=== PATIENT | male | born 1950 | race Caucasian/White ===

== ENCOUNTER 2023-07-15 21:32 | Inpatient (IN) | payer MEDICARE ==
[2023-07-15] MEDS ORDERED: NALOXONE 0.4 MG/ML 1 ML VIAL IV PRN (21:57)
[2023-07-15] MEDS ORDERED: KETOROLAC 15 MG/ML 1 ML VIAL IVP PRN (21:57)
[2023-07-15] MEDS ORDERED: METOCLOPRAMIDE 5 MG/ML 2 ML VIAL IVP STA (22:00)
--- NOTE | 2023-07-15 22:01 | ED ---
Abdominal Pain HPI - General Stated Complaint: Ruptured Appendix Time Seen by Provider: 07/15/23 21:34 Source: patient, EMS, RN notes reviewed - History of Present Illness Initial Comments: Patient is a 73-year-old male presenting to the ER via EMS transferred from [facility] with a chief complaint of a ruptured appendix. Patient states on Sunday he started feeling abdominal pain. He was seen in urgent care and diagnosed with constipation. Patient states pain persisted. He states late last week he had a temperature of 100.3. Upon evaluation in the ER today at [facility] CT scan showed a ruptured appendix. Patient was transported here for further care and surgery. Patient received IV toradol, zofran, and zosyn prior to transport. Patient is not complaining of any pain at this time. - Related Data Home Medications Medication Instructions Recorded Confirmed Candesartan [Atacand] 16 mg PO DAILY 07/15/23 07/15/23 Fluticasone Nasal [place] [Flonase 1 spray EA NOSTRIL DAILY@1200 07/15/23 07/15/23 Nasal [place]] Loratadine [Claritin] 10 mg PO HS 07/15/23 07/15/23 Allergies Allergy/AdvReac Type Severity Reaction Status Date / Time No Known Allergies Allergy Unverified 07/15/23 21:59 Review of Systems ROS Statement: Those systems with pertinent positive or pertinent negative responses have been documented in the HPI. ROS Other: All systems not noted in ROS Statement are negative. General Exam General appearance: alert, in no apparent distress Respiratory exam: Present: normal lung sounds bilaterally. Absent: respiratory distress, wheezes, rales, rhonchi, stridor Cardiovascular Exam: Present: regular rate, normal rhythm, normal heart sounds. Absent: systolic murmur, diastolic murmur, rubs, gallop, clicks GI/Abdominal exam: Present: soft, tenderness (RLQ), normal bowel sounds. Absent: distended, guarding, rebound, rigid Extremities exam: Present: normal inspection, full ROM, normal capillary refill. Absent: tenderness, pedal edema, joint swelling, calf tenderness Neurological exam: Present: alert, oriented X3, CN II-XII intact Psychiatric exam: Present: normal affect, normal mood Skin exam: Present: warm, dry, intact, normal color. Absent: rash Medical Decision Making - Medical Decision Making Was pt. sent in by a medical professional or institution (KEVIN Plascencia, BUTTONHO[employer] MARKER, urgent care, hospital, or correction...) When possible be specific @ -No Did you speak to anyone other than the patient for history (EMS, parent, family, police, friend...)? What history was obtained from this source @ -EMS Did you review nursing and triage notes (agree or disagree)? Why? @ -I reviewed and agree with nursing and triage notes Were old charts reviewed (outside hosp., previous admission, EMS record, old EKG, old radiological studies, urgent care reports/EKG's, correction records)? Report findings @ -Yes, I reviewed charts from [facility] which was signifcant for a ruptured appendix on CT. Differential Diagnosis (chest pain, altered mental status, abdominal pain women, abdominal pain men, vaginal bleeding, weakness, fever, dyspnea, syncope, headache, dizziness, GI bleed, back pain, seizure, CVA, palpatations, mental health, musculoskeletal)? @ -Differential Abdominal Pain Men: Appendicitis, cholecystitis, diverticulosis, ischemic bowel, pancreatitis, hepatitis, UTI, gastroenteritis, AAA, incarcerated hernia, bowel obstruction, constipation, inflammatory bowel, hepatitis, peptic ulcer disease, splenic infarction, perforated viscus, testicular torsion, this is not meant to be an all-inclusive listicable EKG interpreted by me (3pts min.). @ -None X-rays interpreted by me (1pt min.). @ -None done CT interpreted by me (1pt min.). @ -None done U/S interpreted by me (1pt. min.). @ -None done What testing was considered but not performed or refused? (CT, X-rays, U/S, labs)? Why? @ -None What meds were considered but not given or refused? Why? @ -None Did you discuss the management of the patient with other professionals (nnamdi marquezfessionaltim i.e. KEVIN Plascencia, [employer] MARKER, lab, RT, psych nurse, hospice social worker, industrial management teacher, teacher, labor relations officer, continuous pillowcase cutter)? Give summary @ -No Was smoking cessation discussed for >3mins.? @ -No Was critical care preformed (if so, how long)? @ -No Were there social determinants of health that impacted care today? How? (Homelessness, low income, unemployed, alcoholism, drug addiction, transportation, low edu. Level, literacy, decrease access to med. care, long-term, rehab)? @ -No Was there de-escalation of care discussed even if they declined (Discuss DNR or withdrawal of care, Hospice)? DNR status @ -No What co-morbidities impacted this encounter? (DM, HTN, Smoking, COPD, CAD, Cancer, CVA, ARF, Chemo, Hep., AIDS, mental health diagnosis, sleep apnea, morbid obesity)? @ -None Was patient admitted / discharged? Hospital course, mention meds given and route, prescriptions, significant lab abnormalities, going to OR and other pertinent info. @ -Admitted. Patient was transferred here from [facility] for surgical consultation due to ruptured appendix. Upon my evaluation, patient's vitals were stable. Patient denies any current pain. Patient will be admitted for a ruptured appendix. Surgery will be consulted. Patient expressed understanding and agreement with care plan. Undiagnosed new problem with uncertain prognosis? @ -No Drug Therapy requiring intensive monitoring for toxicity (Heparin, Nitro, Insulin, Cardizem)? @ -No Were any procedures done? @ -No Diagnosis/symptom? @ -Ruptured appendix Acute, or Chronic, or Acute on Chronic? @ -Acute Uncomplicated (without systemic symptoms) or Complicated (systemic symptoms)? @ -Complicated Side effects of treatment? @ -No Exacerbation, Progression, or Severe Exacerbation? @ -No Poses a threat to life or bodily function? How? (Chest pain, [place], [place], pneumonia, PE, COPD, DKA, ARF, appy, cholecystitis, CVA, Diverticulitis, Homicidal, Suicidal, threat to staff... and all critical care pts) @ -Yes - Radiology Data Radiology results: report reviewed (Report reviewed from [facility]) Disposition Clinical Impression: Ruptured appendix Disposition: ADMITTED IP TO THIS [facility] Condition: Stable Referrals: Esther Perez MD [Primary Care Provider] - 1-2 days Time of Disposition: 21:57
[2023-07-15] MEDS: SODIUM CHLORIDE 0.9% 1,000 ML IV SCH (23:02)
[2023-07-16] MEDS ORDERED: MORPHINE SULFATE 4 MG/ML SYRINGE IVP PRN (06:22)
[2023-07-16] MEDS ORDERED: ONDANSETRON 4 MG/2 ML VIAL IVP PRN (06:22)
[2023-07-16] MEDS ORDERED: PIPERACILLIN-TAZOBACTAM 3.375 GM in SODIUM CHLORIDE 0.9% 100 ML IVPB ONE (06:31)
--- NOTE | 2023-07-16 06:32 | P.HPIM ---
History of Present Illness H&P Date: 07/15/23 Chief Complaint: Abdominal pain Upon recommendations and request of general surgery patient was admitted to the medical team. 73-year-old male with history of hypertension Patient is a transferred to our facility from [facility] after diagnosis of ruptured appendix for surgical evaluation. Patient reports history of abdominal pain that started on Sunday about 5 days ago he described it as lower abdominal discomfort initially he went a day later to urgent care due to persistent pain was diagnosed with constipation. However throughout the week the pain was getting worse then over the weekend he started spiking fevers feeling very nauseous denies any vomiting having chills denies any diarrhea denies any bleeding he was actually constipated so he goes back to the hospital today [facility] for evaluation and he was diagnosed with a ruptured appendix CT of the abdomen showed small perforated acute appendicitis, air and free fluid with adjacent fat stranding White count 10.78 hemoglobin 13.7 BUN 15 creatinine 1.38 Sodium 131 potassium 4.8 AST slightly elevated 181 ALT 99 Alk phos 263 Urine analysis was unremarkable Upon these findings patient was sent or facility for surgery evaluation Patient denies any history of abdominal surgeries or colonoscopies review of systems Pertinent positives as noted in HPI. All other systems were reviewed and are negative on exam Constitutional: No acute distress, conversant, pleasant Eyes: Anicteric sclerae, moist conjunctiva, Pupils equal round reactive to light ENMT: NC/AT Oropharynx clear, no erythema, or exudates Neck: Supple, no masses, or JVD No carotid bruits No thyromegaly Lungs: Clear to auscultation Clear to percussion Normal respiratory effort, no accessory muscle use Cardiovascular: Heart regular in rate and rhythm, No murmurs, gallops, or rubs No peripheral edema Abdominal: Soft Tenderness to palpation over the right lower quadrant with positive rebound tenderness no rigidity no guarding Abdomen moving with respiration Normoactive bowel sounds No hepatomegaly, No splenomegaly No palpable mass No abdominal wall hernia noted Extremities: No digital cyanosis No clubbing Pedal pulses intact and symmetrical Radial pulses intact and symmetrical No calf tenderness Psychiatric: Alert and oriented to person, place and time Appropriate affect fair judgement Neuro Muscles Strength 5/5 in all 4 extremities Sensation to light touch grossly present throughout Cranial nerves II-XII grossly intact Lymphatics: no palpable cervical or supraclavicular lymph nodes . Past Medical History Past Medical History: Hypertension History of Any Multi-Drug Resistant Organisms: None Reported Past Surgical History: Adenoidectomy, Tonsillectomy Past Psychological History: No Psychological Hx Reported Smoking Status: Never smoker Past Alcohol Use History: Daily Past Drug Use History: None Reported Medications and Allergies Home Medications Medication Instructions Recorded Confirmed Type Candesartan [Atacand] 16 mg PO DAILY 07/15/23 07/15/23 History Fluticasone Nasal [place] [Flonase 1 spray EA NOSTRIL DAILY@1200 07/15/23 07/15/23 History Nasal [place]] Loratadine [Claritin] 10 mg PO HS 07/15/23 07/15/23 History Allergies Allergy/AdvReac Type Severity Reaction Status Date / Time No Known Allergies Allergy Verified 07/15/23 22:59 Physical Exam Vitals: Vital Signs Temp Pulse Resp BP Pulse Ox 07/16/23 05:24 89 16 154/66 94 L 07/16/23 02:00 84 16 139/83 93 L 07/16/23 01:20 85 16 133/76 93 L 07/16/23 01:00 76 16 118/76 93 L 07/16/23 00:11 87 16 106/66 93 L 07/15/23 21:47 98.8 F 89 18 158/96 97 Intake and Output 07/15/23 07/15/23 07/16/23 14:59 22:59 06:59 Other: Weight 106.594 kg Assessment and Plan Assessment: 73-year-old male with hypertension was transferred to our facility from [facility] after finding of acute ruptured appendicitis I discussed the case with the ED doctor I accepted the admission upon request and recommendation of general surgery team to admit to the medical team with anticipated length of stay more than 2 midnights Acute ruptured appendicitis CT of the abdomen showed small perforated acute appendicitis, air and free fluid with adjacent fat stranding White count 10.78 hemoglobin 13.7 BUN 15 creatinine 1.38 Sodium 131 potassium 4.8 AST slightly elevated 181 ALT 99 Alk phos 263 Urine analysis was unremarkable Further management and recommendations per the surgical team Patient will be started on Zosyn 3.75 g IV piggyback every 8 hours IV fluid hydration with normal saline 125 mL per hour Nothing by mouth Pain control with morphine 4 mg IV push every 4 hours when necessary Zofran when necessary 4 mg IV push every 8 hours Hypertension Continue hormone medication candesartan full code DVT prophylaxis mechanical
[2023-07-16 08:53] LABS: ALT 66 U/L (4-49); AST 95 U/L (17-59); African American GFR (CKD) 73 (>60 ml/min/1.73 sqM); Albumin 3.5 g/dL (3.5-5.0); Albumin/Globulin Ratio 1.3; Alkaline Phosphatase 209 U/L (38-126); Anion Gap 11 mmol/L; Blood Urea Nitrogen 17 mg/dL (9-20); Calcium 8.6 mg/dL (8.4-10.2); Carbon Dioxide 22 mmol/L (22-30); Chloride 102 mmol/L (98-107); Globulin 2.7 g/dL; Glucose 105 mg/dL (74-99); Lipase 40 U/L (23-300); Non-African American GFR(CKD) 64 (>60 ml/min/1.73 sqM); Sodium 135 mmol/L (137-145); Total Bilirubin 1.1 mg/dL (0.2-1.3); Total Protein 6.2 g/dL (6.3-8.2)
[2023-07-16] MEDS: LOSARTAN 50 MG TAB PO SCH (10:38)
[2023-07-16 11:38] LABS: Basophils % (A) 0 %; Eosinophils # (A) 0.1 k/uL (0-0.7); Eosinophils % (A) 1 %; HCT 39.6 % (39.0-53.0); Lymphocytes # (A) 0.8 k/uL (1.0-4.8); Lymphocytes % (A) 9 %; MCH 31.3 pg (25.0-35.0); MCHC 32.9 g/dL (31.0-37.0); MCV 95.4 fL (80.0-100.0); Mean Platelet Volume 7.3; Monocytes # (A) 0.6 k/uL (0-1.0); Monocytes % (A) 7 %; Neutrophils # (A) 7.3 k/uL (1.3-7.7); Neutrophils % (A) 82 %; Platelet Count 328 k/uL (150-450); RBC 4.16 m/uL (4.30-5.90); RDW 12.9 % (11.5-15.5); WBC 8.9 k/uL (3.8-10.6)
[2023-07-16] MEDS: SODIUM CHLORIDE 0.9% 1,000 ML IV SCH ×2 (12:23→17:23)
--- NOTE | 2023-07-16 13:02 | P.GSCN ---
History of Present Illness Consult date: 07/16/23 History of present illness: CHIEF COMPLAINT: abdominal pain HISTORY OF PRESENT ILLNESS: This is a 73-year-old male who is a transfer from [facility] for ruptured appendix. Patient reported that he has had right lower quadrant abdominal pain x 6 days. He reports initially the pain started across the lower abdomen and the localized more in the right lower q uadrant. He denies any nausea or vomiting. Patient initially had gone to urgent care and was treated for constipation. However pain did not improve and therefore he went to ER and was found to have a ruptured appendix on CAT scan. Patient was [facility] for surgical evaluation. Patient denies any prior abdominal surgeries. Patient did report having low-grade fever last week. PAST MEDICAL HISTORY: Hypertension PAST SURGICAL HISTORY: Adenoidectomy, tonsillectomy MEDICATIONS: See below ALLERGIES: See below SOCIAL HISTORY: No illicit drug use. Patient reports alcohol use of 2 beers per week REVIEW OF SYSTEMS: CONSTITUTIONAL: Denies fever or chills. HEENT: Denies blurred vision, vision changes, or eye pain. Denies hemoptysis CARDIOVASCULAR: Denies chest pain or pressure. RESPIRATORY: No shortness of breath. GASTROINTESTINAL: See HPI for pertinent findings HEMATOLOGIC: Denies bleeding disorders. GENITOURINARY: Denies any blood in urine or increased urinary frequency. SKIN: Denies pruitis. Denies rash. PHYSICAL EXAM: VITAL SIGNS: Reviewed GENERAL: Well-developed in no acute distress. ABDOMEN: Soft. Nondistended. Tenderness with palpation to right lower quadrant. abdominal discomfort with movement of the bed NEUROLOGIC: Alert and oriented. Cranial nerves II through XII grossly intact. LABORATORY DATA: WBC 10.78 Hgb 13.7 platelets 258 potassium 4.8 creatinine 1.38 Total bili 1.1 AST 95 ALT 66 alk phos 209 IMAGING: Computed tomography scan abdomen and pelvis reported perforated acute appendicitis. Small amount of free air and fluid with extensive adjacent fat stranding. No organized fluid collection. ASSESSMENT: 1. Perforated acute appendicitis 2. Elevated LFTs PLAN: -Patient is scheduled for laparoscopic appendectomy, possible open appendectomy today with Dr. Watkins -Continue IV antibiotics -Continue IV fluids -Continue pain management -Keep patient nothing by mouth Physician Fire Officer note has been reviewed by physician. Signing provider agrees with the documented findings, assessment, and plan of care. Past Medical History Past Medical History: Hypertension History of Any Multi-Drug Resistant Organisms: None Reported Past Surgical History: Adenoidectomy, Tonsillectomy Past Psychological History: No Psychological Hx Reported Smoking Status: Never smoker Past Alcohol Use History: Daily Past Drug Use History: None Reported Medications and Allergies Home Medications Medication Instructions Recorded Confirmed Type Candesartan [Atacand] 16 mg PO DAILY 07/15/23 07/15/23 History Fluticasone Nasal [place] [Flonase 1 spray EA NOSTRIL DAILY@1200 07/15/23 07/15/23 History Nasal [place]] Loratadine [Claritin] 10 mg PO HS 07/15/23 07/15/23 History Allergies Allergy/AdvReac Type Severity Reaction Status Date / Time No Known Allergies Allergy Verified 07/15/23 22:59 Surgical - Exam Vital Signs Temp Pulse Resp BP Pulse Ox 98.8 F 89 18 158/96 97 07/15/23 21:47 07/15/23 21:47 07/15/23 21:47 07/15/23 21:47 07/15/23 21:47 Results - Labs 07/16/23 08:09 07/16/23 08:09 Abnormal Lab Results - Last 24 Hours (Table) 07/16/23 Range/Units 08:09 Sodium 135 L (137-145) mmol/L Glucose 105 H (74-99) mg/dL AST 95 H (17-59) U/L ALT 66 H (4-49) U/L Alkaline Phosphatase 209 H (38-126) U/L Total Protein 6.2 L (6.3-8.2) g/dL Diabetes panel 07/16/23 Range/Units 08:09 Sodium 135 L (137-145) mmol/L Potassium 4.0 (3.5-5.1) mmol/L Chloride 102 (98-107) mmol/L Carbon Dioxide 22 (22-30) mmol/L BUN 17 (9-20) mg/dL Creatinine 1.16 (0.66-1.25) mg/dL Glucose 105 H (74-99) mg/dL Calcium 8.6 (8.4-10.2) mg/dL AST 95 H (17-59) U/L ALT 66 H (4-49) U/L Alkaline Phosphatase 209 H (38-126) U/L Total Protein 6.2 L (6.3-8.2) g/dL Albumin 3.5 (3.5-5.0) g/dL Calcium panel 07/16/23 Range/Units 08:09 Calcium 8.6 (8.4-10.2) mg/dL Albumin 3.5 (3.5-5.0) g/dL Pituitary panel 07/16/23 Range/Units 08:09 Sodium 135 L (137-145) mmol/L Potassium 4.0 (3.5-5.1) mmol/L Chloride 102 (98-107) mmol/L Carbon Dioxide 22 (22-30) mmol/L BUN 17 (9-20) mg/dL Creatinine 1.16 (0.66-1.25) mg/dL Glucose 105 H (74-99) mg/dL Calcium 8.6 (8.4-10.2) mg/dL Adrenal panel 07/16/23 Range/Units 08:09 Sodium 135 L (137-145) mmol/L Potassium 4.0 (3.5-5.1) mmol/L Chloride 102 (98-107) mmol/L Carbon Dioxide 22 (22-30) mmol/L BUN 17 (9-20) mg/dL Creatinine 1.16 (0.66-1.25) mg/dL Glucose 105 H (74-99) mg/dL Calcium 8.6 (8.4-10.2) mg/dL Total Bilirubin 1.1 (0.2-1.3) mg/dL AST 95 H (17-59) U/L ALT 66 H (4-49) U/L Alkaline Phosphatase 209 H (38-126) U/L Total Protein 6.2 L (6.3-8.2) g/dL Albumin 3.5 (3.5-5.0) g/dL
[2023-07-16] MEDS: PIPERACILLIN-TAZOBACTAM 3.375 GM in SODIUM CHLORIDE 0.9% 100 ML IVPB SCH ×2 (15:56→23:34)
[2023-07-16] MEDS ORDERED: ACETAMINOPHEN IV (For NPO) 1,000 MG in EMPTY BAG 1 BAG IVPB PRN (17:34)
[2023-07-16] MEDS ORDERED: LACTATED RINGERS 1,000 ML IV ONE (18:29)
[2023-07-16] MEDS ORDERED: KETOROLAC 15 MG/ML 1 ML VIAL ONE (18:45)
[2023-07-16] MEDS ORDERED: SUGAMMADEX SODIUM 200 MG/2 ML SDV IV ONE (18:45)
[2023-07-16] MEDS ORDERED: SUCCINYLCHOLINE CHLORIDE 200 MG/10 ML VIAL IV ONE (18:45)
[2023-07-16] MEDS ORDERED: PHENYLEPHRINE-0.9% NACL SYG 1,000 MCG/10 ML SYRINGE ONE (18:45)
[2023-07-16] MEDS ORDERED: PROPOFOL 10 MG/ML 20 ML VIAL IV ONE (18:45)
[2023-07-16] MEDS ORDERED: ROCURONIUM 10 MG/ML (5 ML VIAL) IV ONE (18:45)
[2023-07-16] MEDS ORDERED: fentaNYL (PF) 50 MCG/ML 2 ML AMP ONE (18:45)
[2023-07-16] MEDS ORDERED: MIDAZOLAM 2 MG/2 ML VIAL ONE (18:45)
[2023-07-16] MEDS ORDERED: SODIUM CHLORIDE 0.9% 100 ML with ceFAZolin 2,000 MG IV ONE ×2 (18:50)
[2023-07-16] MEDS ORDERED: LIDOCAINE 2% INJ 20 MG/ML SQ ONE (19:17)
[2023-07-16] MEDS ORDERED: HYDROmorphone 1 MG/ML 1 ML SYRINGE IVP PRN (19:36)
--- NOTE | 2023-07-16 19:36 | P.OP ---
Date of Procedure: 07/16/23 Preoperative Diagnosis: Acute appendicitis. Postoperative Diagnosis: Acute ruptured appendicitis Procedure(s) Performed: Laparoscopic appendectomy with drain placement Anesthesia: JOSÉ Surgeon: Juan Miguel Watkins Estimated Blood Loss (ml): 10 Pathology: other Condition: stable Disposition: PACU Operative Findings: Ruptured appendicitis with abscess Description of Procedure: The patient's placed on the operating table in the supine position. The patient received general anesthesia. The abdomen was prepped and draped in the usual sterile fashion. The skin was anesthetized 1% local Xylocaine at the trocar sites. Using an 11 blade the skin was incised at the umbilicus. The umbilicus was grasped with a [place] clamp and then a Veress needle was placed into the peritoneal cavity. Position of the Veress needle was confirmed with positive drop test. After adequate insufflation a 5 mm trocar was placed into the peritoneal cavity. The abdomen was further insufflated. And then the laparoscope was placed in the peritoneal cavity. Next a 5 mm trocar was placed in the midline suprapubic position. And then a 10 mm trocar was placed in the midline epigastric position. The patient was rotated with the right side up and in Trendelenburg. The appendix was visualized. The appendix appeared to be inflamed. The appendix was ruptured. There is evidence of abscess. The appendix was adherent to the lateral abdominal wall. The appendix was grasped and then using the Harmonic scissors the mesoappendix was divided. A PDS Endoloop was then placed around the base of the appendix. And then the appendix was divided using Harmonic scissors. The appendix was placed into an Endo Catch and brought out through the 10 mm trocar site. A EAMON drains placed in the right colic gutter and brought out through the epigastric port site. The abdomen was irrigated. There is no bleeding seen. The trochars withdrawn. The skin was closed interrupted 3-0 Monocryl suture. Dermabond dressing was applied. Patient was sent to recovery room in stable condition.
[2023-07-16] MEDS ORDERED: IBUPROFEN 600 MG TAB PO SCH (22:00)
[2023-07-17] MEDS: SODIUM CHLORIDE 0.9% 1,000 ML IV SCH ×4 (02:53→21:08)
[2023-07-17] MEDS: PIPERACILLIN-TAZOBACTAM 3.375 GM in SODIUM CHLORIDE 0.9% 100 ML IVPB SCH ×3 (07:55→23:52)
[2023-07-17] MEDS: IBUPROFEN 600 MG TAB PO SCH ×3 (07:55→21:06)
[2023-07-17] MEDS: ENOXAPARIN 40 MG/0.4 ML SYRINGE SQ SCH (07:56)
[2023-07-17] MEDS: LOSARTAN 50 MG TAB PO SCH (07:56)
[2023-07-17 08:36] LABS: ALT 36 U/L (10-49); AST 62 U/L (14-35); Albumin 3.2 g/dL (3.8-4.9); Albumin/Globulin Ratio 1.52 Ratio (1.60-3.17); Alkaline Phosphatase 178 U/L (41-126); BUN/Creat Ratio 15.73 Ratio (12.00-20.00); Blood Urea Nitrogen 17.3 mg/dL (9.0-27.0); Calcium 8.2 mg/dL (8.7-10.3); Carbon Dioxide 22.3 mmol/L (21.6-31.8); Chloride 103 mmol/L (96-109); Globulin 2.1 g/dL (1.6-3.3); Glucose 153 mg/dL (70-110); Potassium 4.5 mmol/L (3.5-5.5); Sodium 135 mmol/L (135-145); Total Bilirubin 1.3 mg/dL (0.3-1.2); Total Protein 5.3 g/dL (6.2-8.2)
[2023-07-17 08:43] LABS: Basophils # (A) 0.02 X 10*3/uL (0.00-0.10); Basophils % (A) 0.3 %; Eosinophils # (A) 0.01 X 10*3/uL (0.04-0.35); Eosinophils % (A) 0.1 %; HGB 11.8 g/dL (13.0-17.0); Lymphocytes # (A) 0.62 X 10*3/uL (0.90-5.00); Lymphocytes % (A) 8.3 %; MCH 30.4 pg (27.0-32.0); MCHC 32.8 g/dL (32.0-37.0); MCV 92.8 FL (80.0-97.0); NRBC Per 100 WBC 0 X 10*3/uL (0.00-0.01); Neutrophils # (A) 6.19 X 10*3/uL (1.80-7.70); Neutrophils % (A) 82.8 %; Platelet Count 264 X 10*3/uL (140-440); RBC 3.88 X 10*6/uL (4.40-5.60); RDW 13.4 % (11.5-14.5); WBC 7.48 X 10*3/uL (4.50-10.00)
[2023-07-17] MEDS: HYDROcodone/APAP 5-325MG 1 EACH TAB PO PRN ×2 (08:44→16:23)
--- NOTE | 2023-07-17 10:57 | P.PN ---
Subjective Progress Note Date: 07/17/23 CHIEF COMPLAINT: Acute ruptured appendicitis HISTORY OF PRESENT ILLNESS: Patient is postop day #1 status post laparoscopic appendectomy with drain placement. Patient does complain of abdominal pain. Denies any nausea or vomiting. No flatus. EAMON drain with 50 mL serosanguineous output this morning. Afebrile. WBC 7.48 hgb 11.8 platelets 264 sodium is 135 potassium 4.5 creatinine 1.1 total bilirubin 1.3 AST down from 95-62 ALT 66 down to 36 alk phos 178. Medicine service has ordered a gallbladder ultrasound. PHYSICAL EXAM: VITAL SIGNS: Reviewed. GENERAL: Well-developed in no acute distress. ABDOMEN: Soft. Nondistended. Surgical dressing clean dry and intact. EAMON drain shows sinus output NEUROLOGIC: Alert and oriented. Cranial nerves II through XII grossly intact. ASSESSMENT: 1. Acute ruptured appendicitis status post laparoscopic appendectomy 2. Elevated LFTs PLAN: -Continue regular diet -Consult placed for infectious disease -Encouraged patient to ambulate -Incentive spirometer ordered -Continue pain management. [place] added for oral pain medication -Lovenox for DVT prophylaxis and Pepcid for GI prophylaxis Physician Construction Sales Representative note has been reviewed by physician. Signing provider agrees with the documented findings, assessment, and plan of care. Objective - Vital Signs Vital signs: Vital Signs Temp 98.8 F 07/17/23 07:00 Pulse 91 07/17/23 07:00 Resp 19 07/17/23 07:00 BP 129/72 07/17/23 07:00 Pulse Ox 94 L 07/17/23 07:00 FiO2 Intake & Output 07/16/23 07/17/23 07/17/23 18:59 06:59 18:59 Intake Total 850 1600 Output Total 100 175 50 Balance 750 1425 -50 Weight 106.594 kg Intake: IV 850 100 Intake, IV Titration 1500 Amount Sodium Chloride 0.9% 1, 1500 000 ml @ 125 mls/hr IV . Q8H PAM Rx#:[id number] Output: Drainage 65 50 Anterior Abdomen 65 50 Urine 100 100 Estimated Blood Loss 10 Other: # Voids 2 - Labs CBC & Chem 7: 07/17/23 06:08 07/17/23 06:08 Labs: Abnormal Lab Results - Last 24 Hours (Table) 07/16/23 07/17/23 07/17/23 Range/Units 08:09 06:08 06:08 RBC 4.16 L 3.88 L (4.30-5.90) m/uL Hgb 11.8 L (13.0-17.0) g/dL Hct 36.0 L (39.6-50.0) % MPV 8.0 L (9.5-12.2) FL Lymphocytes # 0.8 L 0.62 L (1.0-4.8) k/uL Eosinophils # 0.01 L (0.04-0.35) X 10*3/uL Glucose 153 H (70-110) mg/dL Calcium 8.2 L (8.7-10.3) mg/dL Total Bilirubin 1.3 H (0.3-1.2) mg/dL AST 62 H (14-35) U/L Alkaline Phosphatase 178 H (41-126) U/L Total Protein 5.3 L (6.2-8.2) g/dL Albumin 3.2 L (3.8-4.9) g/dL Albumin/Globulin Ratio 1.52 L (1.60-3.17) Ratio
--- NOTE | 2023-07-17 13:38 | P.PN ---
Subjective Progress Note Date: 07/17/23 73 year old M with PMH of hypertension. Patient is a transferred to our facility from [facility] in the [facility] after diagnosis of ruptured appendix for surgical evaluation. CT of the abdomen showed small perforated acute appendicitis, air and free fluid with adjacent fat stranding WBC 10.78 Hg 13.7 BUN 15 Cr 1.38 Na 131 K 4.8 AST slightly elevated 181 ALT 99 Alk phos 263 UA unremarkable Patient was started on Zosyn 3.75 g IV piggyback every 8 hours, IVF, Morphine PRN, Zofran PRN and Surgery was consulted. Underwent laparoscopic appendectomy with drain placement on 07/16. 07/17 Patient was seen and exmained. Reports 6/10 pain in the RLQ. CBC Hg 11.8. CMP glu 153, Ca 8.2, T .Bili 1.3, AST 62, alk phos 178, albumin 3.2. General: no distress, appears at stated age Derm: warm, dry Head: atraumatic, normocephalic, symmetric Eyes: EOMI, no lid lag, anicteric sclera Cardiovascular: S1S2 reg, no murmur Lungs: CTA bilateral, no rhonchi, no rales , no accessory muscle use Abdominal: soft, TTP RLQ without rebound, EAMON drain intact, no guarding, no appreciable organomegaly Ext: no gross muscle atrophy, no edema, no contractures Neuro: no focal neuro deficits Psych: Alert, oriented, appropriate affect Based on my assessment of this patient, this patient meets a moderate complexity level of care. Patient has an acute diagnosis of ruptured appendicitis that poses a threat to life or bodily function. Acute ruptured appendicitis: POD 1 laparoscopic appendectomy with drain placement. Continue Zosyn 3.375 g IV TID. NS at 125 cc/hr. BCx negative so far. ID consulted. Acute blood loss anemia: Expected results of surgery. Obstructive transaminitis: US ordered. CODE STATUS: FULL CODE. DVT Prophylaxis: Lovenox SQ GI Prophylaxis: Pepcid Designated medical POA if patient is not able to make medical decisions for themselves: I have reviewed the following email production consultant notes: Operative note, Surgery note. I have reviewed the results of the following tests: CBC, CMP. I have ordered the following tests: US I have discussed the care of this patient with the following independent histor page: I have independently interpreted the following test below: I have discussed the management of this patient with the following physician: Objective - Vital Signs Vital signs: Vital Signs Temp 98.8 F 07/17/23 07:00 Pulse 91 07/17/23 07:00 Resp 19 07/17/23 07:00 BP 129/72 07/17/23 07:00 Pulse Ox 94 L 07/17/23 07:00 FiO2 Intake & Output 07/16/23 07/17/23 07/17/23 18:59 06:59 18:59 Intake Total 850 1600 Output Total 100 175 50 Balance 750 1425 -50 Weight 106.594 kg Intake: IV 850 100 Intake, IV Titration 1500 Amount Sodium Chloride 0.9% 1, 1500 000 ml @ 125 mls/hr IV . Q8H [facility] Rx#:[id number] Output: Drainage 65 50 Anterior Abdomen 65 50 Urine 100 100 Estimated Blood Loss 10 Other: # Voids 2 - Labs CBC & Chem 7: 07/17/23 06:08 07/17/23 06:08 Labs: Abnormal Lab Results - Last 24 Hours (Table) 07/17/23 07/17/23 Range/Units 06:08 06:08 RBC 3.88 L (4.40-5.60) X 10*6/uL Hgb 11.8 L (13.0-17.0) g/dL Hct 36.0 L (39.6-50.0) % MPV 8.0 L (9.5-12.2) FL Lymphocytes # 0.62 L (0.90-5.00) X 10*3/uL Eosinophils # 0.01 L (0.04-0.35) X 10*3/uL Glucose 153 H (70-110) mg/dL Calcium 8.2 L (8.7-10.3) mg/dL Total Bilirubin 1.3 H (0.3-1.2) mg/dL AST 62 H (14-35) U/L Alkaline Phosphatase 178 H (41-126) U/L Total Protein 5.3 L (6.2-8.2) g/dL Albumin 3.2 L (3.8-4.9) g/dL Albumin/Globulin Ratio 1.52 L (1.60-3.17) Ratio Microbiology - Last 24 Hours (Table) 07/16/23 08:09 Blood Culture - Preliminary Blood
--- NOTE | 2023-07-17 16:34 | US ---
EXAMINATION TYPE: US gallbladder DATE OF EXAM: 07/17/2023 COMPARISON: NONE CLINICAL INDICATION: Male, 73 years old with history of obstructive transaminitis, include liver; abn ormal labs. Post appendectomy. TECHNIQUE: Multiple sonographic images of the right upper quadrant are obtained. FINDINGS: EXAM MEASUREMENTS: Liver Length: 18.0 cm Gallbladder Wall: 0.4 cm CBD: not seen Right Kidney: 10.0 x 5.0 x 5.0 cm PLASMA SPECIALIST NOTES:Challenging patient due to limited mobility, post surgical air, and abdominal tavera ges. Pancreas: Obscured by bowel gas Liver: Difficult to penetrate. Intercostal imaging used. Gallbladder: Borderline wall thickness Evidence for sonographic Gavin's sign: No CBD: After multiple attempts, unable to view. Right Kidney: No hydronephrosis or masses seen IMPRESSION: 1. Hepatic steatosis. 2. Borderline gallbladder wall thickening.
[2023-07-17] MEDS: ONDANSETRON 4 MG/2 ML VIAL IVP PRN (16:47)
[2023-07-17] MEDS ORDERED: cloNIDine HCL 0.2 MG TAB PO PRN (20:32)
[2023-07-17] MEDS: FAMOTIDINE 20 MG TAB PO SCH (21:08)
[2023-07-18] MEDS ORDERED: diphenhydrAMINE 25 MG CAP PO STA (01:39)
[2023-07-18 06:53] LABS: HGB 12.6 gm/dL (13.0-17.5); MCH 31.6 pg (25.0-35.0); MCV 95.6 fL (80.0-100.0); Mean Platelet Volume 6.8; Platelet Count 364 k/uL (150-450); RBC 3.98 m/uL (4.30-5.90); RDW 12.9 % (11.5-15.5)
[2023-07-18 07:05] LABS: AST 52 U/L (17-59); African American GFR (CKD) >90 (>60 ml/min/1.73 sqM); Albumin 3.1 g/dL (3.5-5.0); Albumin/Globulin Ratio 1.2; Alkaline Phosphatase 166 U/L (38-126); Anion Gap 10 mmol/L; Blood Urea Nitrogen 18 mg/dL (9-20); Calcium 8.2 mg/dL (8.4-10.2); Carbon Dioxide 20 mmol/L (22-30); Chloride 103 mmol/L (98-107); Globulin 2.6 g/dL; Glucose 129 mg/dL (74-99); Non-African American GFR(CKD) 81 (>60 ml/min/1.73 sqM); Potassium 4.5 mmol/L (3.5-5.1); Sodium 133 mmol/L (137-145); Total Bilirubin 0.8 mg/dL (0.2-1.3); Total Protein 5.7 g/dL (6.3-8.2)
[2023-07-18 07:06] LABS: ALT 26 U/L (4-49)
--- NOTE | 2023-07-18 07:12 | P.CONS ---
History of Present Illness - Reason for Consult Consult date: 07/17/23 Perforated appendicitis Requesting physician: Juan Miguel Watkins - Chief Complaint Abdominal pain x few days - History of Present Illness Patient patient is a 73-year-old male with a past medical history significant for hypertension presenting to the hospital as a transfer from [facility] with concern for ruptured appendix apparently the patient presented to the hospital for abdominal pain on Sunday was seen in the urgent care diagnosed with constipation however the patient pain persisted and the patient describes the pain to be more of a sharp in nature almost 10 out of any severity without any radiation to start having a fever but the patient went to [facility] where the patient did have a CT evidence of a ruptured appendix patient was transferred to this facility for further evaluation patient was eval by general surgery and the patient is status post laparoscopic appendectomy and drain placement blood cultures obtained which are currently pending no OR culture patient was started on Zosyn infectious disease was consulted today for further management of antibiotic therapy, patient has been complaining of mostly abdominal distention today along with some nausea but no vomiting did not have any bowel movement no chest pain shortness of breath or cough patient on presentation to this hospital did have low-grade fever of 99.8 patient did have white count of 8.9 creatinine 1.16 L labs are elevated but trending down Review of Systems Positive point and negatives has been mentioned in the HPI, complete review of systems was performed and all other systems are negative Past Medical History Past Medical History: Hypertension History of Any Multi-Drug Resistant Organisms: None Reported Past Surgical History: Adenoidectomy, Tonsillectomy Past Psychological History: No Psychological Hx Reported Smoking Status: Never smoker Past Alcohol Use History: Daily Past Drug Use History: None Reported Medications and Allergies Home Medications Medication Instructions Recorded Confirmed Type Candesartan [Atacand] 16 mg PO DAILY 07/15/23 07/15/23 History Fluticasone Nasal Dafter [Flonase 1 spray EA NOSTRIL DAILY@1200 07/15/23 07/15/23 History Nasal Dafter] Loratadine [Claritin] 10 mg PO HS 07/15/23 07/15/23 History Allergies Allergy/AdvReac Type Severity Reaction Status Date / Time No Known Allergies Allergy Verified 07/15/23 22:59 Physical Exam Vitals: Vital Signs Temp Pulse Resp BP BP Pulse Ox 07/17/23 07:00 98.8 F 91 19 129/72 94 L 07/17/23 01:26 98.5 F 92 18 108/66 96 07/16/23 22:48 95 116/64 94 L 07/16/23 22:33 98 112/66 92 L 07/16/23 22:18 97 123/62 93 L 07/16/23 22:03 101 H 138/69 95 07/16/23 21:48 97 125/73 07/16/23 21:33 97 150/74 92 L 07/16/23 21:18 98 152/80 96 07/16/23 21:03 96 130/61 92 L 07/16/23 20:48 98.3 F 98 18 134/77 92 L 07/16/23 20:30 99 18 160/74 94 L 07/16/23 20:15 94 18 145/72 94 L 07/16/23 20:00 93 18 155/74 95 07/16/23 19:50 98 18 144/75 96 07/16/23 19:42 98.9 F 97 20 149/70 95 07/16/23 18:32 99.1 F 105 H 18 151/70 98 07/16/23 17:05 99.9 F H 108 H 17 178/73 94 L 07/16/23 14:00 98.7 F 101 H 16 167/90 95 Intake and Output 07/16/23 07/17/23 07/17/23 22:59 06:59 14:59 Intake Total 950 1500 Output Total 175 100 50 Balance 775 1400 -50 Intake: IV 950 Intake, IV Titration 1500 Amount Sodium Chloride 0.9% 1, 1500 000 ml @ 125 mls/hr IV . Q8H [facility] Rx#:[id number] Output: Drainage 65 50 Anterior Abdomen 65 50 Urine 100 100 Estimated Blood Loss 10 Other: # Voids 2 Weight 106.594 kg GENERAL DESCRIPTION: Elderly male up in bed, no distress. No tachypnea or accessory muscle of respiration use. HEENT: Shows Pallor , no scleral icterus. Oral mucous membrane is dry. No pharyngeal erythema or thrush NECK: Trachea central, no thyromegaly. LUNGS: Unlabored breathing. Clear to auscultation anteriorly. No wheeze or crackle. HEART: S1, S2, regular rate and rhythm. No loud murmur ABDOMEN: Soft, mild distention and tenderness EXTREMITIES: No edema of feet. SKIN: No rash, no masses palpable. NEUROLOGICAL: The patient is awake, alert, oriented x3, mood and affect normal. Results CBC & Chem 7: 07/18/23 06:03 07/18/23 06:03 Labs: Abnormal Lab Results - Last 24 Hours (Table) 07/16/23 07/17/23 07/17/23 Range/Units 08:09 06:08 06:08 RBC 4.16 L 3.88 L (4.30-5.90) m/uL Hgb 11.8 L (13.0-17.0) g/dL Hct 36.0 L (39.6-50.0) % MPV 8.0 L (9.5-12.2) FL Lymphocytes # 0.8 L 0.62 L (1.0-4.8) k/uL Eosinophils # 0.01 L (0.04-0.35) X 10*3/uL Glucose 153 H (70-110) mg/dL Calcium 8.2 L (8.7-10.3) mg/dL Total Bilirubin 1.3 H (0.3-1.2) mg/dL AST 62 H (14-35) U/L Alkaline Phosphatase 178 H (41-126) U/L Total Protein 5.3 L (6.2-8.2) g/dL Albumin 3.2 L (3.8-4.9) g/dL Albumin/Globulin Ratio 1.52 L (1.60-3.17) Ratio Assessment and Plan (1) Perforated appendicitis Current Visit: Yes Status: Acute Code(s): K35.32 - AC APPENDICITIS W PERF, LOC PERITONITIS, & GANGR, W/O ABSCS SNOMED Code(s): 82389819 (2) Peritonitis Current Visit: Yes Status: Acute Code(s): K65.9 - PERITONITIS, UNSPECIFIED SNOMED Code(s): 46502966 Plan: 1patient presents hospital with abdominal pain and fever has been diagnosed with ruptured appendicitis in this patient who is status post laparoscopic appendectomy likely organism need to cover will be the enteric gram-negative both aerobic and anaerobes 2-Zosyn should provide adequate antibiotic coverage and will be continued at this point 3-discharge antibiotics on basis of clinical response and culture data We will follow on clinical condition and cultures to further adjust medication if needed Thank you for this consultation we will follow the patient along with you Dictation was produced using [employer] dictation software. please excuse any grammatical, word or spelling errors. Time with Patient: Greater than 30
[2023-07-18] MEDS: ENOXAPARIN 40 MG/0.4 ML SYRINGE SQ SCH (08:27)
[2023-07-18] MEDS: IBUPROFEN 600 MG TAB PO SCH ×3 (08:27→21:11)
[2023-07-18] MEDS: FAMOTIDINE 20 MG TAB PO SCH ×2 (08:27→21:10)
[2023-07-18] MEDS: PIPERACILLIN-TAZOBACTAM 3.375 GM in SODIUM CHLORIDE 0.9% 100 ML IVPB SCH ×3 (08:28→23:40)
[2023-07-18] MEDS: SODIUM CHLORIDE 0.9% 1,000 ML IV SCH ×2 (08:28→10:18)
[2023-07-18] MEDS: LOSARTAN 50 MG TAB PO SCH (08:28)
--- NOTE | 2023-07-18 12:25 | P.PN ---
Subjective Progress Note Date: 07/18/23 73 year old M with PMH of hypertension. Patient is a transferred to our facility from [facility] in the [facility] after diagnosis of ruptured appendix for surgical evaluation. CT of the abdomen showed small perforated acute appendicitis, air and free fluid with adjacent fat stranding WBC 10.78 Hg 13.7 BUN 15 Cr 1.38 Na 131 K 4.8 AST slightly elevated 181 ALT 99 Alk phos 263 UA unremarkable Patient was started on Zosyn 3.75 g IV piggyback every 8 hours, IVF, Morphine PRN, Zofran PRN and Surgery was consulted. Underwent laparoscopic appendectomy with drain placement on 07/16. 07/17 Patient was seen and examined. Reports 6/10 pain in the RLQ. CBC Hg 11.8. CMP glu 153, Ca 8.2, T .Bili 1.3, AST 62, alk phos 178, albumin 3.2. 07/18 Patient was seen and examined. Feels bloated. No bowel movement, not [place] gas. CBC Hg 12.6. CMP Na 133, bicarb 20, glu 129, Ca 8.2, alk phos 166, alb 3.1. GB US shows hepatic steatosis and borderline GB wall thickening. Dr. Christian recommends continuing Zosyn, discharge Abx depending on clinical response and culture data. General: no distress, appears at stated age Derm: warm, dry Head: atraumatic, normocephalic, symmetric Eyes: EOMI, no lid lag, anicteric sclera Cardiovascular: S1S2 reg, no murmur Lungs: CTA bilateral, no rhonchi, no rales , no accessory muscle use Abdominal: soft, TTP RLQ without rebound, EAMON drain intact, no guarding, no appreciable organomegaly, + BS Ext: no gross muscle atrophy, no edema, no contractures Neuro: no focal neuro deficits Psych: Alert, oriented, appropriate affect Based on my assessment of this patient, this patient meets a moderate complexity level of care. Patient has an acute diagnosis of ruptured appendicitis that poses a threat to life or bodily function. Acute ruptured appendicitis: POD 3 laparoscopic appendectomy with drain placement. Continue Zosyn 3.375 g IV TID. Decrease NS from 125 to 75 cc/hr. BCx negative so far. ID on board. Acute blood loss anemia: Expected results of surgery. Obstructive transaminitis: GB US borderline wall thickening. [place] negative. Bile duct unable to be visualized. Monitor. CODE STATUS: FULL CODE. DVT Prophylaxis: Lovenox SQ GI Prophylaxis: Pepcid Designated medical POA if patient is not able to make medical decisions for themselves: I have reviewed the following webmethods consultant notes: ID note, Surgery note. I have reviewed the results of the following tests: CBC, CMP, GB US I have ordered the following tests: I have discussed the care of this patient with the following independent historian: I have independently interpreted the following test below: I have discussed the management of this patient with the following physician: Objective - Vital Signs Vital signs: Vital Signs Temp 98.2 F 07/18/23 00:26 Pulse 83 07/18/23 00:26 Resp 16 07/18/23 00:26 BP 168/80 07/18/23 00:26 Pulse Ox 95 07/18/23 00:26 FiO2 Intake & Output 07/17/23 07/18/23 07/18/23 18:59 06:59 18:59 Output Total 240 240 Balance -240 -240 Output: Drainage 240 240 Anterior Abdomen 240 240 Other: Voiding Method Toilet # Voids 3 2 - Labs CBC & Chem 7: 07/18/23 06:03 07/18/23 06:03 Labs: Abnormal Lab Results - Last 24 Hours (Table) 07/17/23 07/17/23 07/18/23 Range/Units 06:08 06:08 06:03 RBC 3.88 L 3.98 L (4.40-5.60) X 10*6/uL Hgb 11.8 L 12.6 L (13.0-17.0) g/dL Hct 36.0 L 38.0 L (39.6-50.0) % MPV 8.0 L (9.5-12.2) FL Lymphocytes # 0.62 L (0.90-5.00) X 10*3/uL Eosinophils # 0.01 L (0.04-0.35) X 10*3/uL Sodium (137-145) mmol/L Carbon Dioxide (22-30) mmol/L Glucose 153 H (70-110) mg/dL Calcium 8.2 L (8.7-10.3) mg/dL Total Bilirubin 1.3 H (0.3-1.2) mg/dL AST 62 H (14-35) U/L Alkaline Phosphatase 178 H (41-126) U/L Total Protein 5.3 L (6.2-8.2) g/dL Albumin 3.2 L (3.8-4.9) g/dL Albumin/Globulin Ratio 1.52 L (1.60-3.17) Ratio 07/18/23 Range/Units 06:03 RBC (4.40-5.60) X 10*6/uL Hgb (13.0-17.0) g/dL Hct (39.6-50.0) % MPV (9.5-12.2) FL Lymphocytes # (0.90-5.00) X 10*3/uL Eosinophils # (0.04-0.35) X 10*3/uL Sodium 133 L (137-145) mmol/L Carbon Dioxide 20 L (22-30) mmol/L Glucose 129 H (70-110) mg/dL Calcium 8.2 L (8.7-10.3) mg/dL Total Bilirubin (0.3-1.2) mg/dL AST (14-35) U/L Alkaline Phosphatase 166 H (41-126) U/L Total Protein 5.7 L (6.2-8.2) g/dL Albumin 3.1 L (3.8-4.9) g/dL Albumin/Globulin Ratio (1.60-3.17) Ratio Microbiology - Last 24 Hours (Table) 07/16/23 08:09 Blood Culture - Preliminary Blood
--- NOTE | 2023-07-18 13:00 | P.PN ---
Subjective Progress Note Date: 07/18/23 CHIEF COMPLAINT: Acute ruptured appendicitis HISTORY OF PRESENT ILLNESS: Patient is postop day #2 status post laparoscopic appendectomy with drain placement. Patient complains of feeling more distended today. He did have one episode of vomiting yesterday. No flatus. Afebrile. WBC 9.0 Hgb 12.9 platelets 364 sodium 133 potassium 4.5 creatinine 0.95 total bilirubin down to 0.8 AST normalized at 52 ALT down to 26 alk phos trending down at 166 Gallbladder US reported hepatic steatosis and borderline gallbladder wall thickening. EAMON drain 140 mL output through the night PHYSICAL EXAM: VITAL SIGNS: Reviewed. GENERAL: Well-developed in no acute distress. ABDOMEN: Distended. No right upper quadrant tenderness noted. Surgical dressing clean dry and intact. EAMON drain with serosanguineous output NEUROLOGIC: Alert and oriented. Cranial nerves II through XII grossly intact. ASSESSMENT: 1. Acute ruptured appendicitis status post laparoscopic appendectomy 2. Elevated LFTs trending down PLAN: -Downgrade diet to full liquids -Add Ensure for protein supplement -Continue antibiotics per infectious disease -Encourage patient to ambulate -Encourage patient to use incentive spirometer -Continue pain management -Lovenox for DVT prophylaxis and Pepcid for GI prophylaxis Physician Senior Internal Auditor note has been reviewed by physician. Signing provider agrees with the documented findings, assessment, and plan of care. Objective - Vital Signs Vital signs: Vital Signs Temp 97.7 F 07/18/23 07:33 Pulse 101 H 07/18/23 07:33 Resp 14 07/18/23 07:33 BP 148/80 07/18/23 07:33 Pulse Ox 95 07/18/23 07:33 FiO2 Intake & Output 07/17/23 07/18/23 07/18/23 18:59 06:59 18:59 Output Total 240 240 Balance -240 -240 Output: Drainage 240 240 Anterior Abdomen 240 240 Other: Voiding Method Toilet # Voids 3 2 - Labs CBC & Chem 7: 07/18/23 06:03 07/18/23 06:03 Labs: Abnormal Lab Results - Last 24 Hours (Table) 07/18/23 07/18/23 Range/Units 06:03 06:03 RBC 3.98 L (4.30-5.90) m/uL Hgb 12.6 L (13.0-17.5) gm/dL Hct 38.0 L (39.0-53.0) % Sodium 133 L (137-145) mmol/L Carbon Dioxide 20 L (22-30) mmol/L Glucose 129 H (74-99) mg/dL Calcium 8.2 L (8.4-10.2) mg/dL Alkaline Phosphatase 166 H (38-126) U/L Total Protein 5.7 L (6.3-8.2) g/dL Albumin 3.1 L (3.5-5.0) g/dL Microbiology - Last 24 Hours (Table) 07/16/23 08:09 Blood Culture - Preliminary Blood
[2023-07-18] MEDS: ONDANSETRON 4 MG/2 ML VIAL IVP PRN (17:51)
[2023-07-19] MEDS: SODIUM CHLORIDE 0.9% 1,000 ML IV SCH ×2 (03:42→20:12)
[2023-07-19] MEDS: LOSARTAN 50 MG TAB PO SCH (08:27)
[2023-07-19] MEDS: ENOXAPARIN 40 MG/0.4 ML SYRINGE SQ SCH (08:27)
[2023-07-19] MEDS: IBUPROFEN 600 MG TAB PO SCH ×3 (08:27→22:20)
[2023-07-19] MEDS: FAMOTIDINE 20 MG TAB PO SCH ×2 (08:28→20:12)
[2023-07-19] MEDS: PIPERACILLIN-TAZOBACTAM 3.375 GM in SODIUM CHLORIDE 0.9% 100 ML IVPB SCH ×3 (08:28→23:53)
--- NOTE | 2023-07-19 13:03 | P.PN ---
Subjective Progress Note Date: 07/18/23 Principal diagnosis: Reason for follow-up is perforated appendicitis and peritonitis Patient patient is a 73-year-old male with a past medical history significant for hypertension presenting to the hospital as a transfer from [facility] with concern for ruptured appendix , patient is status post laparoscopic appendectomy and drain placement. On today's evaluation that is 07/18/2023, the patient remains to be febrile, the patient is breathing comfortably on room air. The patient denies having any shortness of breath no chest pain or cough, patient complaining of some abdominal distention and discomfort nausea but no vomiting and no bowel movement. Patient did have a white count of 9.0, creatinine 0.95, liver enzymes have normalized, blood cultures pending Objective - Vital Signs Vital signs: Vital Signs Temp 97.7 F 07/18/23 07:33 Pulse 101 H 07/18/23 07:33 Resp 14 07/18/23 07:33 BP 148/80 07/18/23 07:33 Pulse Ox 95 07/18/23 07:33 FiO2 Intake & Output 07/17/23 07/18/23 07/18/23 18:59 06:59 18:59 Output Total 240 240 Balance -240 -240 Output: Drainage 240 240 Anterior Abdomen 240 240 Other: Voiding Method Toilet # Voids 3 2 - Exam GENERAL DESCRIPTION: An elderly male lying in bed in no distress RESPIRATORY SYSTEM: Unlabored breathing , clear to auscultation anteriorly HEART: S1 S2 regular rate and rhythm , ABDOMEN: Soft , mild abdominal distention and tenderness EXTREMITIES: No edema feet - Labs CBC & Chem 7: 07/18/23 06:03 07/18/23 06:03 Labs: Abnormal Lab Results - Last 24 Hours (Table) 07/18/23 07/18/23 Range/Units 06:03 06:03 RBC 3.98 L (4.30-5.90) m/uL Hgb 12.6 L (13.0-17.5) gm/dL Hct 38.0 L (39.0-53.0) % Sodium 133 L (137-145) mmol/L Carbon Dioxide 20 L (22-30) mmol/L Glucose 129 H (74-99) mg/dL Calcium 8.2 L (8.4-10.2) mg/dL Alkaline Phosphatase 166 H (38-126) U/L Total Protein 5.7 L (6.3-8.2) g/dL Albumin 3.1 L (3.5-5.0) g/dL Microbiology - Last 24 Hours (Table) 07/16/23 08:09 Blood Culture - Preliminary Blood Assessment and Plan (1) Perforated appendicitis Current Visit: Yes Status: Acute Code(s): K35.32 - AC APPENDICITIS W PERF, LOC PERITONITIS, & GANGR, W/O ABSCS SNOMED Code(s): 98303222 (2) Peritonitis Current Visit: Yes Status: Acute Code(s): K65.9 - PERITONITIS, UNSPECIFIED SNOMED Code(s): 47318062 Plan: 1patient presents hospital with abdominal pain and fever has been diagnosed with ruptured appendicitis in this patient who is status post laparoscopic appendectomy likely organism need to cover will be the enteric gram-negative both aerobic and anaerobes 2-patient to continue with Zosyn and monitor clinical course closely Dictation was produced using [employer] dictation software. please excuse any grammatical, word or spelling errors. Time with Patient: Less than 30
--- NOTE | 2023-07-19 13:06 | P.PN ---
Subjective Progress Note Date: 07/19/23 Principal diagnosis: Reason for follow-up is perforated appendicitis and peritonitis Patient patient is a 73-year-old male with a past medical history significant for hypertension presenting to the hospital as a transfer from [facility] with concern for ruptured appendix , patient is status post laparoscopic appendectomy and drain placement. On today's evaluation that is 07/18/2023, the patient remains to be febrile, the patient is breathing comfortably on room air. The patient denies having any shortness of breath no chest pain or cough, patient abdominal discomfort has decreased in intensity, no nausea/vomiting did have a bowel movement Patient did have a white count of 9.0, creatinine 0.95 as of yesterday no laboratory today, liver enzymes have normalized, blood cultures pending Objective - Vital Signs Vital signs: Vital Signs Temp 99.1 F 07/19/23 07:00 Pulse 87 07/19/23 07:00 Resp 18 07/19/23 07:00 BP 150/94 07/19/23 07:00 Pulse Ox 93 L 07/19/23 07:00 FiO2 Intake & Output 07/18/23 07/19/23 07/19/23 18:59 06:59 18:59 Output Total 100 720 120 Balance -100 -720 -120 Output: Drainage 100 720 120 Anterior Abdomen 100 720 120 Other: Voiding Method Toilet Toilet # Voids 3 3 - Exam GENERAL DESCRIPTION: An elderly male lying in bed in no distress RESPIRATORY SYSTEM: Unlabored breathing , clear to auscultation anteriorly HEART: S1 S2 regular rate and rhythm , ABDOMEN: Soft , mild abdominal distention but no tenderness EXTREMITIES: No edema feet - Labs CBC & Chem 7: 07/18/23 06:03 07/18/23 06:03 Labs: Microbiology - Last 24 Hours (Table) 07/16/23 08:09 Blood Culture - Preliminary Blood Assessment and Plan (1) Perforated appendicitis Current Visit: Yes Status: Acute Code(s): K35.32 - AC APPENDICITIS W PERF, LOC PERITONITIS, & GANGR, W/O ABSCS SNOMED Code(s): 65866823 (2) Peritonitis Current Visit: Yes Status: Acute Code(s): K65.9 - PERITONITIS, UNSPECIFIED SNOMED Code(s): 65660402 Plan: 1patient presents hospital with abdominal pain and fever has been diagnosed with ruptured appendicitis in this patient who is status post laparoscopic appendectomy likely organism need to cover will be the enteric gram-negative both aerobic and anaerobes 2-patient did have some clinical improvement and will continue with Zosyn and monitor clinical course closely Dictation was produced using [employer] dictation software. please excuse any grammatical, word or spelling errors. Time with Patient: Less than 30
--- NOTE | 2023-07-19 13:39 | P.PN ---
Subjective Progress Note Date: 07/19/23 CHIEF COMPLAINT: Acute ruptured appendicitis HISTORY OF PRESENT ILLNESS: Patient is postop day #3 status post laparoscopic appendectomy with drain placement. Patient does complain of abdominal pain more at the incision site. He is sitting at bedside chair. He did have a loose bowel movement and flatus. Reports decreased appetite. No vomiting. Reports his abdomen still feels bloated. Afebrile. EAMON drain serosanguineous output slightly more cloudy. EAMON drain with 260 mL output this morning PHYSICAL EXAM: VITAL SIGNS: Reviewed. GENERAL: Well-developed in no acute distress. ABDOMEN: Distended. Surgical dressing old blood noted. EAMON drain with serosanguineous output NEUROLOGIC: Alert and oriented. Cranial nerves II through XII grossly intact. ASSESSMENT: 1. Acute ruptured appendicitis status post laparoscopic appendectomy PLAN: -Continue full liquids -Continue antibiotics per infectious disease -Encourage patient to ambulate -Encourage patient to use incentive spirometer -Continue pain management -Lovenox for DVT prophylaxis and Pepcid for GI prophylaxis Physician Cake Washer note has been reviewed by physician. Signing provider agrees with the documented findings, assessment, and plan of care. Objective - Vital Signs Vital signs: Vital Signs Temp 99.1 F 07/19/23 07:00 Pulse 87 07/19/23 07:00 Resp 18 07/19/23 07:00 BP 150/94 07/19/23 07:00 Pulse Ox 93 L 07/19/23 07:00 FiO2 Intake & Output 07/18/23 07/19/23 07/19/23 18:59 06:59 18:59 Output Total 100 720 120 Balance -100 -720 -120 Output: Drainage 100 720 120 Anterior Abdomen 100 720 120 Other: Voiding Method Toilet Toilet # Voids 3 3 - Labs CBC & Chem 7: 07/18/23 06:03 07/18/23 06:03 Labs: Microbiology - Last 24 Hours (Table) 07/16/23 08:09 Blood Culture - Preliminary Blood
--- NOTE | 2023-07-19 16:58 | P.PN ---
Subjective Progress Note Date: 07/19/23 73 year old M with PMH of hypertension. Patient is a transferred to our facility from [facility] in the [facility] after diagnosis of ruptured appendix for surgical evaluation. CT of the abdomen showed small perforated acute appendicitis, air and free fluid with adjacent fat stranding WBC 10.78 Hg 13.7 BUN 15 Cr 1.38 Na 131 K 4.8 AST slightly elevated 181 ALT 99 Alk phos 263 UA unremarkable Patient was started on Zosyn 3.75 g IV piggyback every 8 hours, IVF, Morphine PRN, Zofran PRN and Surgery was consulted. Underwent laparoscopic appendectomy with drain placement on 07/16. 07/17 Patient was seen and examined. Reports 6/10 pain in the RLQ. CBC Hg 11.8. CMP glu 153, Ca 8.2, T .Bili 1.3, AST 62, alk phos 178, albumin 3.2. 07/18 Patient was seen and examined. Feels bloated. No bowel movement, not pas sing gas. CBC Hg 12.6. CMP Na 133, bicarb 20, glu 129, Ca 8.2, alk phos 166, alb 3.1. GB US shows hepatic steatosis and borderline GB wall thickening. Dr. Christian recommends continuing Zosyn, discharge Abx depending on clinical response and culture data. 07/19 Patient was seen and examined. Has a bowel movement. Still has pain. General: no distress, appears at stated age Derm: warm, dry Head: atraumatic, normocephalic, symmetric Eyes: EOMI, no lid lag, anicteric sclera Cardiovascular: S1S2 reg, no murmur Lungs: CTA bilateral, no rhonchi, no rales , no accessory muscle use Abdominal: soft, TTP RLQ without rebound, EAMON drain intact, no guarding, no appreciable organomegaly, + BS Ext: no gross muscle atrophy, no edema, no contractures Neuro: no focal neuro deficits Psych: Alert, oriented, appropriate affect Based on my assessment of this patient, this patient meets a moderate complexity level of care. Patient has an acute diagnosis of ruptured appendicitis that poses a threat to life or bodily function. Acute ruptured appendicitis: POD 4 laparoscopic appendectomy with drain placeme nt. Continue Zosyn 3.375 g IV TID. Decrease NS from 125 to 75 cc/hr. BCx negative so far. ID on board. Acute blood loss anemia: Expected results of surgery. Obstructive transaminitis: GB US borderline wall thickening. [place] negative. Bile duct unable to be visualized. Monitor. CODE STATUS: FULL CODE. DVT Prophylaxis: Lovenox SQ GI Prophylaxis: Pepcid Designated medical POA if patient is not able to make medical decisions for themselves: I have reviewed the following product support consultant notes: ID note, Surgery note. I have reviewed the results of the following tests: I have ordered the following tests: CBC, CMP I have discussed the care of this patient with the following independent historian: I have independently interpreted the following test below: I have discussed the management of this patient with the following physician: Objective - Vital Signs Vital signs: Vital Signs Temp 98.2 F 07/19/23 13:33 Pulse 92 07/19/23 13:33 Resp 18 07/19/23 13:33 BP 153/91 07/19/23 13:33 Pulse Ox 95 07/19/23 13:33 FiO2 Intake & Output 07/18/23 07/19/23 07/19/23 18:59 06:59 18:59 Output Total 100 720 120 Balance -100 -720 -120 Output: Drainage 100 720 120 Anterior Abdomen 100 720 120 Other: Voiding Method Toilet Toilet # Voids 3 3 - Labs CBC & Chem 7: 07/18/23 06:03 07/18/23 06:03 Labs: Microbiology - Last 24 Hours (Table) 07/16/23 08:09 Blood Culture - Preliminary Blood
[2023-07-20] MEDS: SODIUM CHLORIDE 0.9% 1,000 ML IV SCH ×2 (02:07→16:05)
[2023-07-20 08:35] LABS: Basophils # (A) 0.05 X 10*3/uL (0.00-0.10); Basophils % (A) 0.7 %; Eosinophils # (A) 0.47 X 10*3/uL (0.04-0.35); Eosinophils % (A) 6.5 %; HCT 36.6 % (39.6-50.0); Lymphocytes # (A) 0.89 X 10*3/uL (0.90-5.00); Lymphocytes % (A) 12.3 %; MCH 30.3 pg (27.0-32.0); MCHC 32.8 g/dL (32.0-37.0); MCV 92.4 FL (80.0-97.0); Mean Platelet Volume 7.8 FL (9.5-12.2); Monocytes # (A) 0.61 X 10*3/uL (0.20-1.00); Monocytes % (A) 8.4 %; NRBC Per 100 WBC 0 X 10*3/uL (0.00-0.01); Neutrophils # (A) 5.11 X 10*3/uL (1.80-7.70); Neutrophils % (A) 70.6 %; Platelet Count 361 X 10*3/uL (140-440); RBC 3.96 X 10*6/uL (4.40-5.60); RDW 13.3 % (11.5-14.5); WBC 7.24 X 10*3/uL (4.50-10.00)
[2023-07-20 09:21] LABS: BUN/Creat Ratio 15.18 Ratio (12.00-20.00); Blood Urea Nitrogen 16.7 mg/dL (9.0-27.0); Calcium 8.4 mg/dL (8.7-10.3); Carbon Dioxide 19.1 mmol/L (21.6-31.8); Chloride 103 mmol/L (96-109); Glucose 99 mg/dL (70-110); Potassium 4.2 mmol/L (3.5-5.5); Sodium 134 mmol/L (135-145)
[2023-07-20] MEDS: PIPERACILLIN-TAZOBACTAM 3.375 GM in SODIUM CHLORIDE 0.9% 100 ML IVPB SCH ×3 (09:41→23:12)
[2023-07-20] MEDS: ENOXAPARIN 40 MG/0.4 ML SYRINGE SQ SCH (09:46)
[2023-07-20] MEDS: IBUPROFEN 600 MG TAB PO SCH ×3 (09:48→22:10)
[2023-07-20] MEDS: FAMOTIDINE 20 MG TAB PO SCH ×2 (09:49→22:10)
[2023-07-20] MEDS: LOSARTAN 50 MG TAB PO SCH (09:53)
--- NOTE | 2023-07-20 12:19 | P.PN ---
Subjective Progress Note Date: 07/20/23 73 year old M with PMH of hypertension. Patient is a transferred to our facility from [facility] after diagnosis of ruptured appendix for surgical evaluation. CT of the abdomen showed small perforated acute appendicitis, air and free fluid with adjacent fat stranding WBC 10.78 Hg 13.7 BUN 15 Cr 1.38 Na 131 K 4.8 AST slightly elevated 181 ALT 99 Alk phos 263 UA unremarkable Patient was started on Zosyn 3.75 g IV piggyback every 8 hours, IVF, Morphine PRN, Zofran PRN and Surgery was consulted. Underwent laparoscopic appendectomy with drain placement on 07/16. 07/17 Patient was seen and examined. Reports 6/10 pain in the RLQ. CBC Hg 11.8. CMP glu 153, Ca 8.2, T .Bili 1.3, AST 62, alk phos 178, albumin 3.2. 07/18 Patient was seen and examined. Feels bloated. No bowel movement, not pas sing gas. CBC Hg 12.6. CMP Na 133, bicarb 20, glu 129, Ca 8.2, alk phos 166, alb 3.1. GB US shows hepatic steatosis and borderline GB wall thickening. Dr. Christian recommends continuing Zosyn, discharge Abx depending on clinical response and culture data. 07/19 Patient was seen and examined. Has a bowel movement. Still has pain. 07/20 Patient was seen and examined. Having bowel movements and passing gas. Started on FLD today. CBC Hg 12. BMP Na 134, bicarb 19.1, Ca 8.4. Discussed with Dr. Christian, recommends Augmentin on discharge. General: no distress, appears at stated age Derm: warm, dry Head: atraumatic, normocephalic, symmetric Eyes: EOMI, no lid lag, anicteric sclera Cardiovascular: S1S2 reg, no murmur Lungs: CTA bilateral, no rhonchi, no rales , no accessory muscle use Abdominal: soft, TTP RLQ without rebound, EAMON drain intact, no guarding, no appreciable organomegaly, + BS Ext: no gross muscle atrophy, no edema, no contractures Neuro: no focal neuro deficits Psych: Alert, oriented, appropriate affect Based on my assessment of this patient, this patient meets a moderate complexity level of care. Patient has an acute diagnosis of ruptured appendicitis that poses a threat to life or bodily function. Acute ruptured appendicitis: POD 5 laparoscopic appendectomy with drain plac ement. Continue Zosyn 3.375 g IV TID. Decrease NS from 125 to 75 cc/hr. BCx negative so far. ID on board. Acute blood loss anemia: Expected results of surgery. Obstructive transaminitis: GB US borderline wall thickening. [place] negative. Bile duct unable to be visualized. Monitor. Continue to monitor for one more day since today is the first day he has ate something solid. Anticipate DC in 1-2 days. CODE STATUS: FULL CODE. DVT Prophylaxis: Lovenox SQ GI Prophylaxis: Pepcid Designated medical POA if patient is not able to make medical decisions for themselves: I have reviewed the following fashion consultant selling notes: ID note, Surgery note. I have reviewed the results of the following tests: CBC, BMP I have ordered the following tests: I have discussed the care of this patient with the following independent historian: I have independently interpreted the following test below: I have discussed the management of this patient with the following physician: Discussed with Dr. Christian. Objective - Vital Signs Vital signs: Vital Signs Temp 97.8 F 07/20/23 09:00 Pulse 97 07/20/23 09:00 Resp 18 07/20/23 09:00 BP 145/85 07/20/23 09:00 Pulse Ox 97 07/20/23 09:00 FiO2 Intake & Output 07/19/23 07/20/23 07/20/23 18:59 06:59 18:59 Output Total 120 560 Balance -120 -560 Output: Drainage 120 560 Anterior Abdomen 120 560 Other: # Voids 1 2 # Bowel Movements 1 1 - Labs CBC & Chem 7: 07/20/23 05:31 07/20/23 05:31 Labs: Abnormal Lab Results - Last 24 Hours (Table) 07/20/23 07/20/23 Range/Units 05:31 05:31 RBC 3.96 L (4.40-5.60) X 10*6/uL Hgb 12.0 L (13.0-17.0) g/dL Hct 36.6 L (39.6-50.0) % MPV 7.8 L (9.5-12.2) FL Lymphocytes # 0.89 L (0.90-5.00) X 10*3/uL Eosinophils # 0.47 H (0.04-0.35) X 10*3/uL Sodium 134 L (135-145) mmol/L Carbon Dioxide 19.1 L (21.6-31.8) mmol/L Calcium 8.4 L (8.7-10.3) mg/dL Microbiology - Last 24 Hours (Table) 07/16/23 08:09 Blood Culture - Preliminary Blood
[2023-07-20 13:06] VITALS: BMI 31.8
--- NOTE | 2023-07-20 15:47 | P.PN ---
Subjective Progress Note Date: 07/20/23 CHIEF COMPLAINT: Acute ruptured appendicitis HISTORY OF PRESENT ILLNESS: Patient is postop day #4 status post laparoscopic appendectomy with drain placement. Patient reports that he is starting to feel better. His pain is tolerable and controlled. He is having bowel movements and flatus. He still having some nausea and feels bloated but improving. EAMON drain with 260 mL serosanguineous output through the night and 40 mL output this morning. Afebrile. WBC 7.24 PHYSICAL EXAM: VITAL SIGNS: Reviewed. GENERAL: Well-developed in no acute distress. ABDOMEN: Distended. Dressing around EAMON drain clean dry and intact. EAMON drain with serosanguineous output NEUROLOGIC: Alert and oriented. Cranial nerves II through XII grossly intact. ASSESSMENT: 1. Acute ruptured appendicitis status post laparoscopic appendectomy PLAN: -Continue full liquids -Continue antibiotics per infectious disease -Encourage patient to ambulate -Encourage patient to use incentive spirometer -Continue pain management -Lovenox for DVT prophylaxis and Pepcid for GI prophylaxis Physician Crutch Maker note has been reviewed by physician. Signing provider agrees with the documented findings, assessment, and plan of care. Objective - Vital Signs Vital signs: Vital Signs Temp 97.8 F 07/20/23 09:00 Pulse 97 07/20/23 09:00 Resp 18 07/20/23 09:00 BP 145/85 07/20/23 09:00 Pulse Ox 97 07/20/23 09:00 FiO2 Intake & Output 07/19/23 07/20/23 07/20/23 18:59 06:59 18:59 Output Total 120 560 Balance -120 -560 Output: Drainage 120 560 Anterior Abdomen 120 560 Other: # Voids 1 2 # Bowel Movements 1 1 - Labs CBC & Chem 7: 07/20/23 05:31 07/20/23 05:31 Labs: Abnormal Lab Results - Last 24 Hours (Table) 07/20/23 07/20/23 Range/Units 05:31 05:31 RBC 3.96 L (4.40-5.60) X 10*6/uL Hgb 12.0 L (13.0-17.0) g/dL Hct 36.6 L (39.6-50.0) % MPV 7.8 L (9.5-12.2) FL Lymphocytes # 0.89 L (0.90-5.00) X 10*3/uL Eosinophils # 0.47 H (0.04-0.35) X 10*3/uL Sodium 134 L (135-145) mmol/L Carbon Dioxide 19.1 L (21.6-31.8) mmol/L Calcium 8.4 L (8.7-10.3) mg/dL Microbiology - Last 24 Hours (Table) 07/16/23 08:09 Blood Culture - Preliminary Blood
--- NOTE | 2023-07-20 16:17 | P.PN ---
Subjective Progress Note Date: 07/20/23 Principal diagnosis: Reason for follow-up is perforated appendicitis and peritonitis Patient patient is a 73-year-old male with a past medical history significant for hypertension presenting to the hospital as a transfer from [facility] with concern for ruptured appendix , patient is status post laparoscopic appendectomy and drain placement. On today's evaluation that is 07/20/2023 the patient remains to be afebrile, the patient is breathing comfortably on room air and no need for oxygen. The patient denies shortness of breath denies any chest pain or cough, patient denies nausea/vomiting , the patient abdominal pain and distention has decreased in intensity and did have few bowel movement Patient did have a white count 7.24, creatinine 1.1, liver enzymes have normalized, blood cultures pending Objective - Vital Signs Vital signs: Vital Signs Temp 97.8 F 07/20/23 09:00 Pulse 97 07/20/23 09:00 Resp 18 07/20/23 09:00 BP 145/85 07/20/23 09:00 Pulse Ox 97 07/20/23 09:00 FiO2 Intake & Output 07/19/23 07/20/23 07/20/23 18:59 06:59 18:59 Output Total 120 560 Balance -120 -560 Output: Drainage 120 560 Anterior Abdomen 120 560 Other: # Voids 1 2 # Bowel Movements 1 1 - Exam GENERAL DESCRIPTION: An elderly male lying in bed in no distress RESPIRATORY SYSTEM: Unlabored breathing , clear to auscultation anteriorly HEART: S1 S2 regular rate and rhythm , ABDOMEN: Soft , mild abdominal distention but no tenderness EXTREMITIES: No edema feet - Labs CBC & Chem 7: 07/20/23 05:31 07/20/23 05:31 Labs: Abnormal Lab Results - Last 24 Hours (Table) 07/20/23 07/20/23 Range/Units 05:31 05:31 RBC 3.96 L (4.40-5.60) X 10*6/uL Hgb 12.0 L (13.0-17.0) g/dL Hct 36.6 L (39.6-50.0) % MPV 7.8 L (9.5-12.2) FL Lymphocytes # 0.89 L (0.90-5.00) X 10*3/uL Eosinophils # 0.47 H (0.04-0.35) X 10*3/uL Sodium 134 L (135-145) mmol/L Carbon Dioxide 19.1 L (21.6-31.8) mmol/L Calcium 8.4 L (8.7-10.3) mg/dL Microbiology - Last 24 Hours (Table) 07/16/23 08:09 Blood Culture - Preliminary Blood Assessment and Plan (1) Perforated appendicitis Current Visit: Yes Status: Acute Code(s): K35.32 - AC APPENDICITIS W PERF, LOC PERITONITIS, & GANGR, W/O ABSCS SNOMED Code(s): 29261983 (2) Peritonitis Current Visit: Yes Status: Acute Code(s): K65.9 - PERITONITIS, UNSPECIFIED SNOMED Code(s): 86299059 Plan: 1patient presents hospital with abdominal pain and fever has been diagnosed with ruptured appendicitis in this patient who is status post laparoscopic appendectomy likely organism need to cover will be the enteric gram-negative both aerobic and anaerobes 2-patient remains to be afebrile, white count is normal, patient also have some clinical improvement and will continue with Zosyn and monitor clinical course closely Dictation was produced using [employer] dictation software. please excuse any grammatical, word or spelling errors. Time with Patient: Less than 30
[2023-07-21] MEDS: SODIUM CHLORIDE 0.9% 1,000 ML IV SCH ×2 (05:13→19:20)
[2023-07-21] MEDS: LOSARTAN 50 MG TAB PO SCH (08:17)
[2023-07-21] MEDS: ENOXAPARIN 40 MG/0.4 ML SYRINGE SQ SCH (08:17)
[2023-07-21] MEDS: FAMOTIDINE 20 MG TAB PO SCH ×2 (08:17→20:33)
[2023-07-21] MEDS: IBUPROFEN 600 MG TAB PO SCH ×3 (08:17→20:33)
[2023-07-21] MEDS: PIPERACILLIN-TAZOBACTAM 3.375 GM in SODIUM CHLORIDE 0.9% 100 ML IVPB SCH ×3 (08:18→23:59)
[2023-07-21] MEDS ORDERED: HYDROmorphone 0.5 MG/0.5 ML SYRINGE IVP PRN (12:06)
--- NOTE | 2023-07-21 12:20 | P.PN ---
Subjective Progress Note Date: 07/21/23 Principal diagnosis: 73 yo male POD 5 appendectomy for ruptured appendicitis Feel better, passing flatus, some liquid to soft stools, still feels a bit distended. Objective - Vital Signs Vital signs: Vital Signs Temp 98.1 F 07/21/23 07:22 Pulse 98 07/21/23 07:22 Resp 18 07/21/23 07:22 BP 127/88 07/21/23 07:22 Pulse Ox 92 L 07/21/23 07:22 FiO2 Intake & Output 07/20/23 07/21/23 07/21/23 18:59 06:59 18:59 Output Total 140 150 200 Balance -140 -150 -200 Weight 106.594 kg Output: Drainage 140 150 200 Anterior Abdomen 140 150 200 Other: Voiding Method Toilet Toilet # Voids 3 # Bowel Movements 2 - Constitutional General appearance: Present: no acute distress - EENT Eyes: Present: PERRLA - Respiratory Respiratory: negative: CTA (non labored respirations) - Cardiovascular Rhythm: regular - Gastrointestinal Gastrointestinal Comment(s): Protuberant, soft, EAMON w serous drainage. - Neurologic Neurologic Comment(s): A&O x 3, appropriate affect - Labs CBC & Chem 7: 07/20/23 05:31 07/20/23 05:31 Assessment and Plan Assessment: 73 yo male POD 5 appendectomy for rupture, appears stable, non toxic, await full return gut function Will taper opiods, encourage ambulation, use of spirometer ok for soft diet as tolerated. Time with Patient: Less than 30
--- NOTE | 2023-07-21 14:24 | P.PN ---
Subjective Progress Note Date: 07/21/23 73 year old M with PMH of hypertension. Patient is a transferred to our facility from [facility] in the [facility] after diagnosis of ruptured appendix for surgical evaluation. CT of the abdomen showed small perforated acute appendicitis, air and free fluid with adjacent fat stranding WBC 10.78 Hg 13.7 BUN 15 Cr 1.38 Na 131 K 4.8 AST slightly elevated 181 ALT 99 Alk phos 263 UA unremarkable Patient was started on Zosyn 3.75 g IV piggyback every 8 hours, IVF, Morphine PRN, Zofran PRN and Surgery was consulted. Underwent laparoscopic appendectomy with drain placement on 07/16. 07/17 Patient was seen and examined. Reports 6/10 pain in the RLQ. CBC Hg 11.8. CMP glu 153, Ca 8.2, T .Bili 1.3, AST 62, alk phos 178, albumin 3.2. 07/18 Patient was seen and examined. Feels bloated. No bowel movement, not pas sing gas. CBC Hg 12.6. CMP Na 133, bicarb 20, glu 129, Ca 8.2, alk phos 166, alb 3.1. GB US shows hepatic steatosis and borderline GB wall thickening. Dr. Christian recommends continuing Zosyn, discharge Abx depending on clinical response and culture data. 07/19 Patient was seen and examined. Has a bowel movement. Still has pain. 07/20 Patient was seen and examined. Having bowel movements and passing gas. Started on FLD today. CBC Hg 12. BMP Na 134, bicarb 19.1, Ca 8.4. Discussed with Dr. Christian, recommends Augmentin on discharge. 07/21 Patient was seen and examined. Had 3 liquid bowel movements today. Tolerating FLD. Surgery recommends advancing to GI soft. General: no distress, appears at stated age Derm: warm, dry Head: atraumatic, normocephalic, symmetric Eyes: EOMI, no lid lag, anicteric sclera Cardiovascular: S1S2 reg, no murmur Lungs: CTA bilateral, no rhonchi, no rales , no accessory muscle use Abdominal: distended, TTP RLQ without rebound, EAMON drain intact, no guarding, no appreciable organomegaly, + BS Ext: no gross muscle atrophy, no edema, no contractures Neuro: no focal neuro deficits Psych: Alert, oriented, appropriate affect Based on my assessment of this patient, this patient meets a moderate complexity level of care. Patient has an acute diagnosis of ruptured appendicitis that poses a threat to life or bodily function. Acute ruptured appendicitis: POD 5 laparoscopic appendectomy with drain placement. Continue Zosyn 3.375 g IV TID. Decrease NS from 125 to 75 cc/hr. BCx negative so far. ID on board. Acute blood loss anemia: Expected results of surgery. Obstructive transaminitis: GB US borderline wall thickening. [place] negative. Bile duct unable to be visualized. Monitor. Advance diet to GI soft. Plans for discharge home tomorrow if able to tolerate d iet. CODE STATUS: FULL CODE. DVT Prophylaxis: Lovenox SQ GI Prophylaxis: Pepcid Designated medical POA if patient is not able to make medical decisions for themselves: I have reviewed the following network systems consultant notes: ID note, Surgery note. I have reviewed the results of the following tests: I have ordered the following tests: I have discussed the care of this patient with the following independent historian: I have independently interpreted the following test below: I have discussed the management of this patient with the following physician: Objective - Vital Signs Vital signs: Vital Signs Temp 98.1 F 07/21/23 07:22 Pulse 98 07/21/23 07:22 Resp 18 07/21/23 07:22 BP 127/88 07/21/23 07:22 Pulse Ox 92 L 07/21/23 07:22 FiO2 Intake & Output 07/20/23 07/21/23 07/21/23 18:59 06:59 18:59 Output Total 140 150 200 Balance -140 -150 -200 Weight 106.594 kg Output: Drainage 140 150 200 Anterior Abdomen 140 150 200 Other: Voiding Method Toilet Toilet # Voids 3 # Bowel Movements 2 - Labs CBC & Chem 7: 07/20/23 05:31 07/20/23 05:31 Labs: Microbiology - Last 24 Hours (Table) 07/16/23 08:09 Blood Culture - Final Blood
[2023-07-21] MEDS ORDERED: LORATADINE 10 MG TAB PO SCH (21:00)
[2023-07-22] MEDS: IBUPROFEN 600 MG TAB PO SCH (08:26)
[2023-07-22] MEDS: PIPERACILLIN-TAZOBACTAM 3.375 GM in SODIUM CHLORIDE 0.9% 100 ML IVPB SCH (08:26)
[2023-07-22] MEDS: LOSARTAN 50 MG TAB PO SCH (08:27)
[2023-07-22] MEDS: FAMOTIDINE 20 MG TAB PO SCH (08:27)
[2023-07-22] MEDS: ENOXAPARIN 40 MG/0.4 ML SYRINGE SQ SCH (08:27)
[2023-07-22] MEDS ORDERED: FLUTICASONE 50MCG/SPRAY NASAL 16GM EA NOSTRIL SCH (12:00)
--- NOTE | 2023-07-22 13:40 | P.DS ---
Providers Date of admission: 07/15/23 21:38 Expected date of discharge: 07/22/23 Attending physician: Ranjit Baker MD Consults: 07/15/23 21:57 Consult Physician Stat Consulting Provider: Juan Miguel Watkins Consult Reason/Comments: ruptured appendix Do you want consulting provider notified?: Yes 07/16/23 19:36 Consult Physician Routine Consulting Provider: Nathaly Christian Consult Reason/Comments: Perforated appendicitis Do you want consulting provider notified?: Yes Primary care physician: Esther Perez MD Hospital Course: 73 year old M with PMH of hypertension. Patient is a transferred to our facility from [facility] after diagnosis of ruptured appendix for surgical evaluation. CT of the abdomen showed small perforated acute appendicitis, air and free fluid with adjacent fat stranding WBC 10.78 Hg 13.7 BUN 15 Cr 1.38 Na 131 K 4.8 AST slightly elevated 181 ALT 99 Alk phos 263 UA unremarkable Patient was started on Zosyn 3.75 g IV piggyback every 8 hours, IVF, Morphine PRN, Zofran PRN and Surgery was consulted. Underwent laparoscopic appendectomy with drain placement on 07/16. 07/17 Reports 6/10 pain in the RLQ. 07/18 Feels bloated. No bowel movement, not passing gas. GB US shows hepatic steatosis and borderline GB wall thickening. 07/19 Had a bowel movement. Still has pain. 07/20 Having bowel movements and passing gas. Started on FLD today. Dr. Christian recommends Augmentin on discharge. 07/21 Had 3 liquid bowel movements today. Tolerating FLD. Surgery recommends advancing to GI soft. 07/22 Patient was seen and examined. Continues to have bowel movements. He was advanced to GI soft yesterday. Tolerating diet well. Plans for discharge home today on 2 weeks of Augmentin, [place]/Toradol PRN for pain and Senokot. Advised to follow up with PCP within 1-[address] Watkins within 1 week of discharge for drain removal. Pertinent studies include CT AP. Pertient procedures include laparoscopic appendectomy. General: no distress, appears at stated age Derm: warm, dry Head: atraumatic, normocephalic, symmetric Eyes: EOMI, no lid lag, anicteric sclera Cardiovascular: S1S2 reg, no murmur Lungs: CTA bilateral, no rhonchi, no rales , no accessory muscle use Abdominal: distended, TTP RLQ without rebound, EAMON drain intact, no guarding, no appreciable organomegaly, + BS Ext: no gross muscle atrophy, no edema, no contractures Neuro: no focal neuro deficits Psych: Alert, oriented, appropriate affect Discharge Diagnosis: Acute ruptured appendicitis Acute blood loss anemia Obstructive transaminitis This complex discharge took 35 minutes to complete. Patient Condition at Discharge: Stable Plan - Discharge Summary Discharge Rx Participant: Yes New Discharge Prescriptions: New Famotidine [Pepcid] 20 mg PO BID #60 tab Ketorolac [Toradol] 10 mg PO Q6HR #20 tab HYDROcodone/APAP 5-325MG [[place] 5-325] 1 tab PO Q4HR PRN 3 Days #18 tab PRN Reason: Severe Breakthrough Pain Famotidine [Pepcid] 20 mg PO BID #60 tablet Sennosides [Senokot] 8.6 mg PO DAILY #30 tablet Ketorolac [Toradol] 10 mg PO Q6HR PRN #20 tab PRN Reason: Pain HYDROcodone/APAP 10-325MG [[place] 10-325] 1 tab PO Q4HR PRN 3 Days #18 tab PRN Reason: Severe Breakthrough Pain Sennosides-Docusate Sodium [Senokot-S] 1 tab PO DAILY #14 tablet Amoxic-Pot Clav 875-125Mg [Augmentin 875-125] 1 tab PO Q12HR 14 Days #28 tab Amoxic-Pot Clav 875-125Mg [Augmentin 875-125] 1 tab PO Q12HR 14 Days #28 tab Continue Loratadine [Claritin] 10 mg PO HS Fluticasone Nasal Lyons [Flonase Nasal Lyons] 1 spray EA NOSTRIL DAILY@1200 Candesartan [Atacand] 16 mg PO DAILY Discharge Medication List Candesartan [Atacand] 16 mg PO DAILY 07/15/23 [History] Fluticasone Nasal [place] [Flonase Nasal [place]ons] 1 spray EA NOSTRIL DAILY@1200 07/15/23 [History] Loratadine [Claritin] 10 mg PO HS 07/15/23 [History] Amoxic-Pot Clav 875-125Mg [Augmentin 875-125] 1 tab PO Q12HR 14 Days #28 tab 07/22/23 [Rx] Amoxic-Pot Clav 875-125Mg [Augmentin 875-125] 1 tab PO Q12HR 14 Days #28 tab 07/22/23 [Rx] Famotidine [Pepcid] 20 mg PO BID #60 tab 07/22/23 [Rx] Famotidine [Pepcid] 20 mg PO BID #60 tablet 07/22/23 [Rx] HYDROcodone/APAP 10-325MG [[place] 10-325] 1 tab PO Q4HR PRN 3 Days #18 tab 07/22/23 [Rx] HYDROcodone/APAP 5-325MG [[place] 5-325] 1 tab PO Q4HR PRN 3 Days #18 tab 07/22/23 [Rx] Ketorolac [Toradol] 10 mg PO Q6HR #20 tab 07/22/23 [Rx] Ketorolac [Toradol] 10 mg PO Q6HR PRN #20 tab 07/22/23 [Rx] Sennosides [Senokot] 8.6 mg PO DAILY #30 tablet 07/22/23 [Rx] Sennosides-Docusate Sodium [Senokot-S] 1 tab PO DAILY #14 tablet 07/22/23 [Rx] Follow up Appointment(s)/Referral(s): Esther Perez MD [Primary Care Provider] - 1-2 days (Please call office Sunday to schedule appointment ) Juan Miguel Watkins MD [STAFF PHYSICIAN] - 1 Week (Please call Sunday to schedule appointment ) Activity/Diet/Wound Care/Special Instructions: Diet: GI soft. Follow up with your PCP within 1-2 days of discharge. Follow up with Dr. Watkins within 1 week of discharge for drain removal. Discharge Disposition: HOME SELF-CARE
--- NOTE | 2023-07-22 14:43 | P.PN ---
Subjective Progress Note Date: 07/21/23 Principal diagnosis: Reason for follow-up is perforated appendicitis and peritonitis Patient patient is a 73-year-old male with a past medical history significant for hypertension presenting to the hospital as a transfer from [facility] with concern for ruptured appendix , patient is status post laparoscopic appendectomy and drain placement. On today's evaluation that is 07/21/2023 the patient continues to be afebrile, the patient is breathing comfortably on room air and denies any shortness of breath, the patient denies chest pain or cough, patient abdominal distention has decreased and denies nausea/vomiting or diarrhea. Patient did have a white count 7.24, creatinine 1.1 as of 07/20/2023, liver enzymes have normalized, blood cultures so far negative Objective - Vital Signs Vital signs: Vital Signs Temp 98.1 F 07/21/23 07:22 Pulse 98 07/21/23 07:22 Resp 18 07/21/23 07:22 BP 127/88 07/21/23 07:22 Pulse Ox 92 L 07/21/23 07:22 FiO2 Intake & Output 07/20/23 07/21/23 07/21/23 18:59 06:59 18:59 Output Total 140 150 200 Balance -140 -150 -200 Weight 106.594 kg Output: Drainage 140 150 200 Anterior Abdomen 140 150 200 Other: Voiding Method Toilet Toilet # Voids 3 # Bowel Movements 2 - Exam GENERAL DESCRIPTION: An elderly male lying in bed in no distress RESPIRATORY SYSTEM: Unlabored breathing , clear to auscultation anteriorly HEART: S1 S2 regular rate and rhythm , ABDOMEN: Soft , mild abdominal distention but no tenderness EXTREMITIES: No edema feet - Labs CBC & Chem 7: 07/20/23 05:31 07/20/23 05:31 Labs: Microbiology - Last 24 Hours (Table) 07/16/23 08:09 Blood Culture - Final Blood Assessment and Plan (1) Perforated appendicitis Current Visit: Yes Status: Acute Code(s): K35.32 - AC APPENDICITIS W PERF, LOC PERITONITIS, & GANGR, W/O ABSCS SNOMED Code(s): 27986381 (2) Peritonitis Current Visit: Yes Status: Acute Code(s): K65.9 - PERITONITIS, UNSPECIFIED SNOMED Code(s): 59150667 Plan: 1patient presents hospital with abdominal pain and fever has been diagnosed with ruptured appendicitis in this patient who is status post laparoscopic appendectomy likely organism need to cover will be the enteric gram-negative both aerobic and anaerobes 2-patient remains to be afebrile, white count is normal, patient did have clinical improvement and will continue with Zosyn and plan to finish therapy with oral antibiotics Dictation was produced using [employer] dictation software. please excuse any grammatical, word or spelling errors. Time with Patient: Less than 30
--- NOTE | 2023-07-22 14:44 | P.PN ---
Subjective Progress Note Date: 07/22/23 Principal diagnosis: Reason for follow-up is perforated appendicitis and peritonitis Patient patient is a 73-year-old male with a past medical history significant for hypertension presenting to the hospital as a transfer from [facility] with concern for ruptured appendix , patient is status post laparoscopic appendectomy and drain placement. On today's evaluation that is 07/22/2023 the patient denies any fever or any chills, the patient denies shortness of breath chest pain or cough, , patient abdominal distention has decreased and denies nausea/vomiting he is having some diarrhea but no blood or mucus in the stool Patient did have a white count 7.24, creatinine 1.1 as of 07/20/2023 no new lab draw today, liver enzymes have normalized, blood cultures so far negative Objective - Vital Signs Vital signs: Vital Signs Temp 98.5 F 07/22/23 06:58 Pulse 83 07/22/23 06:58 Resp 17 07/22/23 06:58 BP 170/89 07/22/23 06:58 Pulse Ox 93 L 07/22/23 12:28 FiO2 Intake & Output 07/21/23 07/22/23 07/22/23 18:59 06:59 18:59 Output Total 200 180 Balance -200 -180 Output: Drainage 200 180 Anterior Abdomen 200 180 Other: # Voids 3 4 # Bowel Movements 1 - Exam GENERAL DESCRIPTION: An elderly male lying in bed in no distress RESPIRATORY SYSTEM: Unlabored breathing , clear to auscultation anteriorly HEART: S1 S2 regular rate and rhythm , ABDOMEN: Soft , mild abdominal distention but no tenderness EXTREMITIES: No edema feet - Labs CBC & Chem 7: 07/20/23 05:31 07/20/23 05:31 Labs: Microbiology - Last 24 Hours (Table) 07/16/23 08:09 Blood Culture - Final Blood Assessment and Plan (1) Perforated appendicitis Current Visit: Yes Status: Acute Code(s): K35.32 - AC APPENDICITIS W PERF, LOC PERITONITIS, & GANGR, W/O ABSCS SNOMED Code(s): 08011142 (2) Peritonitis Current Visit: Yes Status: Acute Code(s): K65.9 - PERITONITIS, UNSPECIFIED SNOMED Code(s): 07186182 Plan: 1patient presents hospital with abdominal pain and fever has been diagnosed with ruptured appendicitis in this patient who is status post laparoscopic appendectomy likely organism need to cover will be the enteric gram-negative both aerobic and anaerobes 2-patient remains to be afebrile, white count is normal, and a culture has been negative 3- patient did have clinical improvement and will will be able to finish therapy with oral Augmentin and close outpatient follow-up Dictation was produced using [employer] dictation software. please excuse any grammatical, word or spelling errors. Time with Patient: Less than 30
[2023-07-22 15:22] VITALS: BP 152/82; PULSE 94; RESP 18; TEMP 98.4
== END 2023-07-22 16:22 | disposition home or self-care (01) | DRG 398 ==
LOC: EC 21:32 → 4SSUR 21:38
PROVIDERS: ADMIT Internal Medicine; ATTEND Internal Medicine
PROC: 0DTJ4ZZ Resection of Appendix, Percutaneous Endoscopic Approach (ICD-10-PCS; principal; 2023-07-16 22:25)
DX: K35.33 Acute appendicitis with perforation, localized peritonitis, and gangrene, with abscess (principal); D62 Acute posthemorrhagic anemia; K76.0 Fatty (change of) liver, not elsewhere classified; I10 Essential (primary) hypertension; K59.00 Constipation, unspecified; Z79.899 Other long term (current) drug therapy
CPT/HCPCS: 76705; 80048; 80053; 83690; 85025; 85027; 87040; 88304; 94760; 96361; 96365; 96366; 96375; 99285